=== PATIENT | male | born 1955 | race Caucasian/White ===

== ENCOUNTER 2018-06-18 09:48 | Day surgery (SDC) | payer BC ==
[~2018-06-18] VITALS: Ht 167.6 cm; Wt 76.6 kg
[2018-06-18] MEDS ORDERED: NORCO 325 MG-51 TAB PO (10:10)
[2018-06-18] MEDS ORDERED: PRIL40 PO (10:10)
[2018-06-18] MEDS ORDERED: ASPIRIN 81M81 MG/TA2 PO (10:13)
[2018-06-18] MEDS ORDERED: LIPITOR 10MG10 MG PO (10:13)
[2018-06-18 10:51] VITALS: BP 163/83; PULSE 82; TEMP 98.7
[2018-06-18 15:00] VITALS: BP 127/73; PULSE 74; TEMP 98.5
[2018-06-18 15:15] VITALS: BP 128/91; PULSE 87
[2018-06-18 15:30] VITALS: BP 118/74; PULSE 78
[2018-06-18 20:14] VITALS: BP 117/63; PULSE 88; TEMP 98.3
[2018-06-19 00:30] VITALS: BP 125/64; PULSE 65; TEMP 97.7
[2018-06-19 04:14] VITALS: BP 113/53; PULSE 70; TEMP 97.6
[2018-06-19 07:57] VITALS: BP 146/75; PULSE 68; TEMP 97.8
== END 2018-06-19 10:50 | disposition home or self-care (01) ==
LOC: SDCO 09:48 → MEDICAL 15:21 → SDCO 06-19 10:50
DX: N20.1 Calculus of ureter (principal); K21.9 Gastro-esophageal reflux disease without esophagitis; Z98.52 Vasectomy status; Z88.2 Allergy status to sulfonamides; Z79.82 Long term (current) use of aspirin; Z83.3 Family history of diabetes mellitus; Z82.49 Family history of ischemic heart disease and other diseases of the circulatory system
CPT/HCPCS: OP; C1769; C2617; J0690; J1100; J1885; J2405; J2704; J2765; J3010; J7120; Q9967

== ENCOUNTER → 2020-04-16 | Outpatient (CLI) | payer BC ==
[~2020-04-16] MED LIST: ASPIRIN 81M81 MG/TA2 PO; LIPITOR 10MG10 MG PO; NORCO 325 MG-51 TAB PO; PRIL40 PO
== END ==
LOC: COL.LAB 08:12
DX: Z01.818 Encounter for other preprocedural examination (principal); Z20.828 Contact with and (suspected) exposure to other viral communicable diseases